=== PATIENT | female | born 1965 | race Two or more races ===

== ENCOUNTER 2024-01-26 14:31 | Inpatient (IN) | payer OTHER ==
[2024-01-26] MEDS ORDERED: FAMOTIDINE 20 MG/50 ML IVPB 20 MG/50 ML MG IVPB ONE (15:33)
[2024-01-26] MEDS ORDERED: MAG HYDROX/AL HYDROX/SIMETH 30 ML UNIT-DOSE CUP ONE ×2 (15:33→21:38)
[2024-01-26] MEDS ORDERED: ACETAMINOPHEN INJECTION 100 ML IVPB ONE (15:33)
[2024-01-26] MEDS: ACETAMINOPHEN 1000 MG/100 ML BAG IVPB ONE (15:46)
[2024-01-26] MEDS: SODIUM CHLORIDE 0.9% 500 ML INFUS.BAG IV ONE (15:46)
[2024-01-26] MEDS: MAG HYDROX/AL HYDROX/SIMETH 30 ML UNIT-DOSE CUP PO ONE (15:46)
[2024-01-26] MEDS: FAMOTIDINE 20 MG/50 ML IVPB 20 MG/50 ML MG IVPB ONE (15:47)
[2024-01-26 15:54] LABS: BASO % 0.3 % (0-2.0); EOS % 0.2 % (0-4.5); HEMATOCRIT 42.4 % (32.4-45.2); HEMOGLOBIN 14.1 GM/dL (10.7-15.3); LYMPH % 7.9 % (8-40); MCH 31.2 pg (25.7-33.7); MCHC 33.4 g/dl (32.0-36.0); MEAN CELL VOLUME 93.5 fl (80-96); MEAN PLT VOLUME 8.1 fl (7.5-11.1); MONO % 8.3 % (3.8-10.2); NEUT % 83.3 % (42.8-82.8); PLATELET COUNT 365 10^3/uL (134-434); RBC 4.53 M/mm3 (3.60-5.2); RDW 14.6 % (11.6-15.6)
[2024-01-26 16:13] LABS: INR 1.02 (0.83-1.09); PROTHROMBIN TIME (PATIENT) 11.8 SEC (9.7-13.0)
[2024-01-26 16:14] LABS: POTASSIUM 4.6 mmol/L (3.5-5.1)
[2024-01-26 16:15] LABS: ACTIVATED PTT 25.9 SECONDS (25.2-36.5)
[2024-01-26 16:16] LABS: BLOOD UREA NITROGEN 16.7 mg/dL (7-18); CALCIUM 9.8 mg/dL (8.5-10.1)
[2024-01-26 16:20] LABS: CREATININE 0.8 mg/dL (0.55-1.3)
[2024-01-26 16:21] LABS: BILIRUBIN,TOTAL 1.4 mg/dL (0.2-1); TOT PROT 8.2 g/dl (6.4-8.2)
[2024-01-26] MEDS ORDERED: PIPERACILLIN/TAZOB 3.375 GM 3.375 GM/50 ML BAG IVPB ONE (16:53)
[2024-01-26] MEDS: PIPERACILLIN/TAZOB 3.375 GM 3.375 GM in DEXTROSE 5%-WATER - 50 ML IVPB ONE (16:58)
[2024-01-26] MEDS ORDERED: MAG HYDROX/AL HYDROX/SIMETH 30 ML UNIT-DOSE CUP PO PRN (20:50)
[2024-01-26] MEDS ORDERED: morphine SULFATE 4 MG/ML VIAL IVPUSH PRN (20:52)
[2024-01-26] MEDS: SODIUM CHLORIDE 1,000 ML IV SCH (21:35)
[2024-01-26] MEDS ORDERED: ENOXAPARIN NA (PORCINE) 40 MG/0.4 ML DISP.SYRIN SQ ONE (21:38)
[2024-01-26] MEDS ORDERED: PANTOPRAZOLE SODIUM 40 MG/100 ML BAG IVPB ONE (21:38)
[2024-01-26 23:36] LABS: PH,URINE 8.5 (5.0-8.0); URINE APPEARANCE TURBID; URINE BILIRUBIN 1+ (NEGATIVE); URINE COLOR DK YELLOW; URINE GLUCOSE (UA) NEGATIVE (NEGATIVE); URINE KETONE NEGATIVE (NEGATIVE); URINE LEUK ESTERASE 1+ (NEGATIVE); URINE NITRITE NEGATIVE (NEGATIVE); URINE PROTEIN TRACE (NEGATIVE)
[2024-01-26 23:37] LABS: EPI CELLS 3.2 /uL (0-25.1); HYALINE CASTS 0.29 /uL (0-3.1); URINE BACTERIA 0.9 /uL (0-1359); URINE RBC 26.2 /uL (0-23.9); URINE WBC 5.1 /uL (0-25.8)
[2024-01-27 03:30] VITALS: BMI 26.9
[2024-01-27] MEDS: TRIMETHOBENZAMIDE HCL 200MG/2ML INJ IM PRN (03:31)
[2024-01-27 07:12] LABS: HEMATOCRIT 36.4 % (32.4-45.2); HEMOGLOBIN 12.2 GM/dL (10.7-15.3); MCH 31.5 pg (25.7-33.7); MCHC 33.4 g/dl (32.0-36.0); MEAN CELL VOLUME 94.2 fl (80-96); MEAN PLT VOLUME 8.5 fl (7.5-11.1); PLATELET COUNT 279 10^3/uL (134-434); RBC 3.86 M/mm3 (3.60-5.2); RDW 14.5 % (11.6-15.6); WHITE BLOOD COUNT 5.4 K/mm3 (4.0-10.0)
[2024-01-27 07:37] LABS: MAGNESIUM 2.1 mg/dL (1.8-2.4)
[2024-01-27 07:39] LABS: BLOOD UREA NITROGEN 9.5 mg/dL (7-18)
[2024-01-27 07:41] LABS: CREATININE 0.5 mg/dL (0.55-1.3)
[2024-01-27 07:42] LABS: BILIRUBIN,DIRECT 1.1 mg/dL (0.0-0.2); PHOSPHOROUS 2.3 mg/dL (2.5-4.9); TOT PROT 6.5 g/dl (6.4-8.2)
[2024-01-27 07:44] LABS: BILIRUBIN,TOTAL 2.2 mg/dL (0.2-1)
[2024-01-27 07:47] LABS: ALBUMIN 3.2 g/dl (3.4-5.0); CALCIUM 7.9 mg/dL (8.5-10.1)
[2024-01-27] MEDS: MAG HYDROX/AL HYDROX/SIMETH 30 ML UNIT-DOSE CUP PO SCH (09:54)
[2024-01-27] MEDS: ENOXAPARIN NA (PORCINE) 40 MG/0.4 ML DISP.SYRIN SQ SCH (09:54)
[2024-01-27] MEDS: PANTOPRAZOLE SODIUM 40 MG VIAL IVPUSH SCH (09:54)
[2024-01-27] MEDS: ACETAMINOPHEN 325 MG TABLET (FP) PO PRN (16:58)
[2024-01-27] MEDS: PIPERACILLIN/TAZOB 3.375 GM 3.375 GM in DEXTROSE 5%-WATER - 50 ML IVPB SCH (18:02)
[2024-01-28 09:31] LABS: BASO % 0.7 % (0-2.0); HEMATOCRIT 39.2 % (32.4-45.2); HEMOGLOBIN 13.4 GM/dL (10.7-15.3); LYMPH % 13.9 % (8-40); MCH 32.2 pg (25.7-33.7); MCHC 34.3 g/dl (32.0-36.0); MEAN CELL VOLUME 93.9 fl (80-96); MEAN PLT VOLUME 8.9 fl (7.5-11.1); MONO % 7.9 % (3.8-10.2); NEUT % 74.5 % (42.8-82.8); PLATELET COUNT 300 10^3/uL (134-434); RBC 4.17 M/mm3 (3.60-5.2); RDW 14.7 % (11.6-15.6); WHITE BLOOD COUNT 9.2 K/mm3 (4.0-10.0)
[2024-01-28 09:53] LABS: POTASSIUM 3.9 mmol/L (3.5-5.1)
[2024-01-28 10:14] LABS: CREATININE 0.6 mg/dL (0.55-1.3)
[2024-01-28 10:16] LABS: BILIRUBIN,TOTAL 1.6 mg/dL (0.2-1); TOT PROT 7.9 g/dl (6.4-8.2)
[2024-01-28 10:18] LABS: ALBUMIN 3.9 g/dl (3.4-5.0); CALCIUM 9.2 mg/dL (8.5-10.1)
[2024-01-28] MEDS: ONDANSETRON 4 MG/2 ML VIAL IVPUSH PRN (10:40)
[2024-01-28] MEDS: PIPERACILLIN/TAZOB 3.375 GM 3.375 GM in DEXTROSE 5%-WATER - 50 ML IVPB SCH (13:45)
[2024-01-29 06:47] LABS: BASO % 0.8 % (0-2.0); EOS % 2.2 % (0-4.5); HEMATOCRIT 37.7 % (32.4-45.2); HEMOGLOBIN 12.4 GM/dL (10.7-15.3); LYMPH % 28.9 % (8-40); MCH 31.1 pg (25.7-33.7); MCHC 32.9 g/dl (32.0-36.0); MEAN CELL VOLUME 94.4 fl (80-96); MEAN PLT VOLUME 8.8 fl (7.5-11.1); MONO % 12.4 % (3.8-10.2); NEUT % 55.7 % (42.8-82.8); PLATELET COUNT 280 10^3/uL (134-434); RBC 3.99 M/mm3 (3.60-5.2); RDW 14.3 % (11.6-15.6)
[2024-01-29 07:05] LABS: CALCIUM 8.6 mg/dL (8.5-10.1)
[2024-01-29 07:06] LABS: ALBUMIN 3.4 g/dl (3.4-5.0)
[2024-01-29 07:09] LABS: CREATININE 0.5 mg/dL (0.55-1.3)
[2024-01-29 07:11] LABS: BILIRUBIN,TOTAL 1.2 mg/dL (0.2-1); TOT PROT 6.9 g/dl (6.4-8.2)
[2024-01-29] MEDS: PIPERACILLIN/TAZOB 3.375 GM 3.375 GM in DEXTROSE 5%-WATER - 50 ML IVPB ONE (11:28)
[2024-01-29] MEDS ORDERED: ROCURONIUM BROMIDE 50 MG/5 ML SYRINGE ONE (12:29)
[2024-01-29] MEDS ORDERED: FENTANYL CITRATE/PF 50 MCG/ML VIAL ONE ×5 (12:29→16:02)
[2024-01-29] MEDS ORDERED: ONDANSETRON 4 MG/2 ML VIAL ONE (12:29)
[2024-01-29] MEDS ORDERED: MIDAZOLAM HCL 2 MG/2 ML SINGLE DOSE VIAL ONE (12:29)
[2024-01-29] MEDS ORDERED: PROPOFOL 20 ML ONE (12:29)
[2024-01-29] MEDS ORDERED: DEXAMETHASONE SOD PHOSPHATE 4 MG/1 ML VIAL ONE (12:29)
[2024-01-29] MEDS ORDERED: BUPIVACAINE HCL/PF 0.25% (2.5MG/ML) 10 ML VIAL ONE (13:09)
[2024-01-29] MEDS ORDERED: BUPIVACAINE HCL/PF 0.5% (5MG/ML) 10 ML VIAL ONE (13:09)
[2024-01-29] MEDS ORDERED: INDOCYANINE GREEN 25 MG/10 ML VIAL IVPUSH ONE (13:15)
[2024-01-29] MEDS ORDERED: ONDANSETRON 4 MG/2 ML VIAL IVPUSH PRN ×2 (13:31→15:21)
[2024-01-29] MEDS: ceFAZolin SODIUM 1 GM VIAL IVPB ONE (13:36)
[2024-01-29] MEDS: BUPIVACAINE HCL/PF 0.25% (2.5MG/ML) 10 ML VIAL IJ ONE (14:05)
[2024-01-29] MEDS ORDERED: KETOROLAC TROMETHAMINE 30 MG/1 ML VIAL ONE (14:51)
[2024-01-29] MEDS ORDERED: SUGAMMADEX SODIUM 200 MG/2 ML VIAL ONE (15:06)
[2024-01-29] MEDS ORDERED: ACETAMINOPHEN INJECTION 100 ML IVPB ONE (15:23)
[2024-01-29] MEDS: ACETAMINOPHEN 1000 MG/100 ML BAG IVPB ONE ×2 (15:25→15:36)
[2024-01-29] MEDS: LACTATED RINGERS SOLUTION 1,000 ML IV SCH ×2 (15:59→16:30)
[2024-01-29 16:56] VITALS: RESP 20
[2024-01-29] MEDS: morphine SULFATE 4 MG/ML VIAL IVPUSH PRN (19:47)
[2024-01-29 23:03] VITALS: TEMP 97.9
[2024-01-30] MEDS: ACETAMINOPHEN 325 MG TABLET (FP) PO PRN (05:23)
[2024-01-30 06:39] LABS: HEMATOCRIT 36.6 % (32.4-45.2); MCHC 32.9 g/dl (32.0-36.0); MEAN CELL VOLUME 94.2 fl (80-96); MEAN PLT VOLUME 8.8 fl (7.5-11.1); PLATELET COUNT 283 10^3/uL (134-434); RBC 3.88 M/mm3 (3.60-5.2); RDW 13.9 % (11.6-15.6); WHITE BLOOD COUNT 11.6 K/mm3 (4.0-10.0)
[2024-01-30 07:10] LABS: POTASSIUM 4.2 mmol/L (3.5-5.1)
[2024-01-30 07:12] LABS: BLOOD UREA NITROGEN 7.7 mg/dL (7-18)
[2024-01-30 07:13] LABS: ALBUMIN 3.2 g/dl (3.4-5.0); MAGNESIUM 2.1 mg/dL (1.8-2.4)
[2024-01-30 07:16] LABS: CREATININE 0.5 mg/dL (0.55-1.3)
[2024-01-30 07:17] LABS: BILIRUBIN,TOTAL 0.9 mg/dL (0.2-1)
[2024-01-30 07:18] LABS: TOT PROT 6.8 g/dl (6.4-8.2)
[2024-01-30 13:26] VITALS: BP 102/65
[2024-01-30 15:19] VITALS: PULSE 85
== END 2024-01-30 18:42 | disposition home or self-care (01) | DRG 419 ==
LOC: JER 14:31 → JERBED 18:16 → J7W 01-27 02:57
PROVIDERS: ADMIT Internal Medicine; ATTEND Internal Medicine
PROC: 8E0W8CZ Robotic Assisted Procedure of Trunk Region, Via Natural or Artificial Opening Endoscopic (ICD-10-PCS; 2024-01-29)
PROC: 0FT44ZZ Resection of Gallbladder, Percutaneous Endoscopic Approach (ICD-10-PCS; principal; 2024-01-29 14:30)
DX: K80.00 Calculus of gallbladder with acute cholecystitis without obstruction (principal); K21.9 Gastro-esophageal reflux disease without esophagitis; L30.9 Dermatitis, unspecified
CPT/HCPCS: 36415; 71046-TC-FY; 74181-TC; 76705-TC; 80053; 80061; 80076; 81003; 83036; 83605; 83690; 83735; 84100; 84484; 85025; 85027; 85610; 85730; 88304-TC; 93005; 93010; 94760; 99285-25; J0131